=== PATIENT | female | born 1990 | race African-American/Black ===

== ENCOUNTER 2024-02-27 11:54 | Emergency (ER) | payer SELFPAY ==
[~2024-02-27] VITALS: Ht 180.3 cm; Wt 67.0 kg
[2024-02-27 12:01] VITALS: BP 149/93; PULSE 76; RESP 20; TEMP 98.3; O2SAT 99
[2024-02-27 12:36] LABS: BASOPHILS % 0.4 % (0.0-2.0); EOSINOPHILS % 0.1 % (0.0-5.0); HEMATOCRIT. 47.2 % (36.0-48.0); HEMOGLOBIN. 15.5 g/dL (12.0-16.0); LYMPHOCYTES % 11.8 % (20.0-50.0); MEAN CORPUSCULAR HEMOGLOBIN 29.4 pg (28.0-32.0); MEAN CORPUSCULAR HGB CONC 32.7 g/dL (31.0-37.0); MEAN CORPUSCULAR VOLUME 89.9 fL (81.0-99.0); MEAN PLATELET VOLUME 8.5 fl (7.4-10.4); MONOCYTES % 5.5 % (2.0-8.0); NEUTROPHILS % 82.2 % (40.0-76.0); PLATELET 256 x1000/uL (130-400); RED BLOOD CELL COUNT 5.26 mill/uL (4.2-5.4); RED CELL DISTRIBUTION WIDTH 14.9 % (11.6-14.6); WHITE BLOOD COUNT 9.9 x1000/uL (4.5-11.0)
[2024-02-27 12:57] LABS: HCG SCREEN NEGATIVE
[2024-02-27 13:12] LABS: ALANINE AMINOTRANSFERASE 25 IU/L (10-49); ALBUMIN 5.4 g/dL (3.2-4.8); ASPARTATE AMINOTRANSFERASE 37 IU/L (<34); BILIRUBIN TOTAL 0.9 mg/dL (0.1-1.0); CALCIUM 9.7 mg/dL (8.7-10.4); CARBON DIOXIDE 21 mEq/L (21-32); CHLORIDE 102 mEq/L (98-107); CREATININE 0.9 mg/dL (0.6-1.0); GLUCOSE 69 mg/dL (70-105); PROTEIN TOTAL 9.2 g/dL (6.0-8.3); SODIUM 135 mEq/L (136-145); UREA NITROGEN BLOOD 7 mg/dL (9-23)
[2024-02-27 15:33] LABS: CLARITY URINE CLEAR (CLEAR); COLOR URINE YELLOW (YELLOW); GLUCOSE URINE NEGATIVE (NEGATIVE); KETONES URINE 3+ (NEGATIVE); LEUKOCYTE ESTERASE URINE NEGATIVE (NEGATIVE); NITRITE URINE NEGATIVE (NEGATIVE); OCCULT BLOOD URINE NEGATIVE (NEGATIVE); PROTEIN URINE NEGATIVE (NEGATIVE); SPECIFIC GRAVITY URINE 1.014 (1.005-1.030); UROBILINOGEN URINE 0.2 E.U./dL (0.2-1.0)
[2024-02-27] MEDS ORDERED: DICYCLOMINE 10 MG/5 ML ORAL SYR PO ONE (17:00)
[2024-02-27] MEDS ORDERED: DICYCLOMINE HCL 10MG CAPSULE PO NR (17:00)
[2024-02-27] MEDS ORDERED: MAGNESIUM/ALUMINUM HYDROXIDE/SIMETHICONE 30ML UDC PO ONE (17:00)
[2024-02-27] MEDS ORDERED: METOCLOPRAMIDE HCL 10MG/2ML VIAL IM ONE (17:00)
== END 2024-02-27 17:02 | disposition home or self-care (01) ==
LOC: ER 13:09
DX: R10.816 Epigastric abdominal tenderness (principal)
CPT/HCPCS: 36415; 74176; 80053; 81003; 84703; 85025; 99284